=== PATIENT | female | born 1955 | race Caucasian/White ===

== ENCOUNTER 2019-10-14 22:59 | Emergency (ER) | payer SELFPAY ==
--- NOTE | 2019-10-15 00:22 | ER ---
Nurse's Notes [facility] Name: Dana Suarez Age: 64 yrs Sex: Female : 1955 Arrival Date: 10/14/2019 Time: 23:03 Bed 8 Private MD: Diagnosis: Acute bronchitis Presentation: 10/14 23:15 Presenting complaint: Patient states: Reports cough, sore throat and headache since ea yesterday. Reports clear nasal discharge and feels congested. Transition of care: patient was not received from another setting of care. Onset of symptoms was October 14, 2019. Risk Assessment: Do you want to hurt yourself or someone else? Patient reports no desire to harm self or others. Initial Sepsis Screen: Does the patient meet any 2 criteria? No. Patient's initial sepsis screen is negative. Does the patient have a suspected source of infection? No. Patient's initial sepsis screen is negative. Care prior to arrival: None. 23:15 Method Of Arrival: Ambulatory ea 23:15 Acuity: KRISTAL 4 ea Triage Assessment: 23:20 General: Appears uncomfortable, Behavior is appropriate for age. Pain: Complains of ea pain in sore throat. EENT: Reports nasal congestion pain in sore throat. Historical: - Allergies: 23:19 Aspirin; ea 23:19 Sulfa (Sulfonamide Antibiotics); ea - PSHx: 23:19 neck sx; ea - Immunization history:: Adult Immunizations up to date. - Social history:: Smoking status: Patient denies any tobacco usage or history of. - Ebola Screening: : No symptoms or risks identified at this time. Screenin:19 Abuse screen: Denies threats or abuse. Nutritional screening: No deficits noted. ea Tuberculosis screening: No symptoms or risk factors identified. Fall Risk None identified. Assessment: 23:20 General: Appears uncomfortable. Neuro: Level of Consciousness is awake, alert, obeys ea commands, Oriented to person, place, time, situation. Cardiovascular: Patient's skin is warm and dry. Respiratory: Airway is patent Respiratory effort is even, unlabored, Respiratory pattern is regular, symmetrical, Breath sounds are clear bilaterally. EENT: Throat is reddened. Derm: Skin is pink, warm \T\ dry. 10/15 00:00 Reassessment: Patient and/or family updated on plan of care and expected duration. Pain ea level reassessed. Patient is alert, oriented x 3, equal unlabored respirations, skin warm/dry/pink. 01:02 Reassessment: Patient and/or family updated on plan of care and expected duration. Pain ea level reassessed. Patient is alert, oriented x 3, equal unlabored respirations, skin warm/dry/pink. Discharge instruction given to patient verbalized the understanding of instruction. Pt left ED ambulatory accompanied by family. Pt tolerating well. Vital Signs: 10/14 23:18 BP 147 / 89; Pulse 92; Resp 19; Temp 98; Pulse Ox 98% on R/A; Weight 62.6 kg; Height 4 ea ft. 11 in. (149.86 cm); 10/15 01:02 BP 138 / 80; Pulse 88; Resp 18; Temp 98.2; Pulse Ox 100% on R/A; ea 10/14 23:18 Body Mass Index 27.87 (62.60 kg, 149.86 cm) ea ED Course: 10/14 23:03 Patient arrived in ED. cf2 23:15 Sonia Ayoub, RN is Primary Nurse. ea 23:18 Triage completed. ea 23:19 Patient has correct armband on for positive identification. Bed in low position. Call ea light in reach. 23:19 Arm band placed on right wrist. Patient placed in an exam room, on a stretcher, on ea pulse oximetry. 23:24 Daisy Avalos FNP-C is PHCP. snw 23:24 Ramez Leyva MD is Attending Physician. snw 10/15 01:03 No provider procedures requiring assistance completed. Patient did not have IV access ea during this emergency room visit. Administered Medications: 00:28 Drug: Tussionex Pennkinetic ER 5 ml Route: PO; ea 01:00 Follow up: Response: No adverse reaction ea 00:28 Drug: Zithromax 500 mg Route: PO; ea 01: Follow up: Response: No adverse reaction ea 00:28 Drug: predniSONE 40 mg Route: PO; ea 01: Follow up: Response: No adverse reaction ea 00:28 Drug: Pepcid 20 mg Route: PO; ea 01: Follow up: Response: No adverse reaction ea Outcome: Discharge ordered by MD. snw 01:03 Discharged to home ambulatory, with family. murray 01:03 Condition: stable 01:03 Discharge instructions given to patient, Instructed on discharge instructions, follow up and referral plans. medication usage, Demonstrated understanding of instructions, follow-up care, medications, Prescriptions given X 4. 01:04 Patient left the ED. murray Signatures: Daisy Avalos, CAM MAKER-C CAM MAKER-Csnw Sonia Ayoub, RN RN Mirella Braxton 2
--- NOTE | 2019-10-15 00:23 | EDPHYS ---
Physician Documentation [facility] Name: Dana Suarez Age: 64 yrs Sex: Female : 1955 Arrival Date: 10/14/2019 Time: 23:03 Bed 8 Private MD: ED Physician Ramez Leyva HPI: 10/15 00:25 This 64 yrs old Female presents to ER via Ambulatory with complaints of snw Cough, Sore Throat. 00:25 The patient or guardian reports cough, described as moderate. Onset: The snw symptoms/episode began/occurred suddenly, 2 day(s) ago, and became persistent. Severity of symptoms: At their worst the symptoms were moderate. Associated signs and symptoms: Pertinent positives: sore throat. It is unknown whether or not the patient has had similar symptoms in the past. The patient has not recently seen a physician, and does not have an established primary care provider. Historical: - Allergies: 10/14 23:19 Aspirin; ea 23:19 Sulfa (Sulfonamide Antibiotics); ea - PSHx: 23:19 neck sx; ea - Immunization history:: Adult Immunizations up to date. - Social history:: Smoking status: Patient denies any tobacco usage or history of. - Ebola Screening: : No symptoms or risks identified at this time. ROS: 10/15 00:24 Eyes: Negative for injury, pain, redness, and discharge. snw ENT: Negative for injury, pain, and discharge, Cardiovascular: Negative for chest pain, palpitations, and edema. Abdomen/GI: Negative for abdominal pain, nausea, vomiting, diarrhea, and constipation, Back: Negative for injury and pain, : Negative for injury, bleeding, discharge, and swelling, MS/Extremity: Negative for injury and deformity, Skin: Negative for injury, rash, and discoloration, Neuro: Negative for headache, weakness, numbness, tingling, and seizure. Constitutional: Positive for body aches, malaise. ENT: Positive for sore throat. Respiratory: Positive for cough, with no reported sputum. Exam: 00:24 Constitutional: This is a well developed, well nourished patient who is awake, alert, snw and in no acute distress. Head/Face: Normocephalic, atraumatic. Eyes: Pupils equal round and reactive to light, extra-ocular motions intact. Lids and lashes normal. Conjunctiva and sclera are non-icteric and not injected. Cornea within normal limits. Periorbital areas with no swelling, redness, or edema. Neck: Trachea midline, no thyromegaly or masses palpated, and no cervical lymphadenopathy. Supple, full range of motion without nuchal rigidity, or vertebral point tenderness. No Meningismus. Chest/axilla: Normal chest wall appearance and motion. Nontender with no deformity. No lesions are appreciated. Cardiovascular: Regular rate and rhythm with a normal S1 and S2. No gallops, murmurs, or rubs. Normal PMI, no JVD. No pulse deficits. Abdomen/GI: Soft, non-tender, with normal bowel sounds. No distension or tympany. No guarding or rebound. No evidence of tenderness throughout. Back: No spinal tenderness. No costovertebral tenderness. Full range of motion. Skin: Warm, dry with normal turgor. Normal color with no rashes, no lesions, and no evidence of cellulitis. MS/ Extremity: Pulses equal, no cyanosis. Neurovascular intact. Full, normal range of motion. Neuro: Awake and alert, GCS 15, oriented to person, place, time, and situation. Cranial nerves II-XII grossly intact. Motor strength 5/5 in all extremities. Sensory grossly intact. Cerebellar exam normal. Normal gait. Psych: Awake, alert, with orientation to person, place and time. Behavior, mood, and affect are within normal limits. 00:24 ENT: External ear(s): are unremarkable, Ear canal(s): are normal, TM's: are normal, Nose: is normal, Mouth: is normal, Posterior pharynx: erythema, that is moderate, Voice: is normal. 00:24 Respiratory: the patient does not display signs of respiratory distress, Respirations: shallow respirations, that is mild, Breath sounds: are clear throughout, bronchitic cough. Vital Signs: 10/14 23:18 BP 147 / 89; Pulse 92; Resp 19; Temp 98; Pulse Ox 98% on R/A; Weight 62.6 kg; Height 4 ea ft. 11 in. (149.86 cm); 10/15 01:02 BP 138 / 80; Pulse 88; Resp 18; Temp 98.2; Pulse Ox 100% on R/A; ea 10/14 23:18 Body Mass Index 27.87 (62.60 kg, 149.86 cm) ea MDM: 10/14 23:24 Patient medically screened. snw 10/15 00:23 Data reviewed: vital signs, nurses notes. Data interpreted: Pulse oximetry: on room air snw is 98 %. Interpretation: normal. Counseling: I had a detailed discussion with the patient and/or guardian regarding: the historical points, exam findings, and any diagnostic results supporting the discharge/admit diagnosis, the presence of at least one elevated blood pressure reading (>120/80) during this emergency department visit, lab results, the need for outpatient follow up, for definitive care, to return to the emergency department if symptoms worsen or persist or if there are any questions or concerns that arise at home. Special discussion: I have referred the patient to see his PCP for further evaluation of high blood pressure. Based on the history and exam findings, there is no indication for further emergent testing or inpatient evaluation. I discussed with the patient/guardian the need to see the primary care provider for further evaluation of the symptoms. 10/14 23:15 Order name: Strep; Complete Time: 23:58 ea 10/14 23:15 Order name: Flu; Complete Time: 23:58 ea 10/14 23:56 Order name: Throat Culture EDMS Administered Medications: 00:28 Drug: Tussionex Pennkinetic ER 5 ml Route: PO; ea 01:00 Follow up: Response: No adverse reaction ea 00:28 Drug: Zithromax 500 mg Route: PO; ea 01:00 Follow up: Response: No adverse reaction ea 00: Drug: predniSONE 40 mg Route: PO; ea 01:00 Follow up: Response: No adverse reaction ea 00: Drug: Pepcid 20 mg Route: PO; ea 01:00 Follow up: Response: No adverse reaction ea Disposition: 05:47 Co-signature as Attending Physician, Ramez Leyva MD I agree with the assessment and [facility] plan of care. Disposition: 10/15/19 00:22 Discharged to Home. Impression: Acute bronchitis. - Condition is Stable. - Discharge Instructions: Acute Bronchitis, Adult, Fever, Adult, Cough, Adult, Rehydration, Adult. - Prescriptions for Prednisone 20 mg Oral Tablet - take 2 tablet by ORAL route once daily for 5 days; 10 tablet. Albuterol Sulfate 90 mcg/actuation - inhale 1-2 puff by INHALATION route every 4-6 hours; 1 Inhaler. Pepcid 20 mg Oral Tablet - take 1 tablet by ORAL route once daily for 10 days; 10 tablet. Zithromax 500 mg Oral Tablet - take 1 tablet by ORAL route once daily for 5 days; 5 tablet. - Work release form, Medication Reconciliation Form, Thank You Letter, Antibiotic Education, Prescription Opioid Use form. - Follow up: Emergency Department; When: As needed; Reason: Worsening of condition. Follow up: Private Physician; When: 2 - 3 days; Reason: Recheck today's complaints, Continuance of care, Re-evaluation by your physician. Signatures: Dispatcher [employer] EDDaisy Spencer FNP-C FNP-Sonia Carreno, RN RN Ramez Valero MD MD tw4 Corrections: (The following items were deleted from the chart) 01:04 00:22 10/15/2019 00:22 Discharged to Home. Impression: Acute bronchitis. Condition is ea Stable. Forms are Medication Reconciliation Form, Thank You Letter, Antibiotic Education, Prescription Opioid Use. Follow up: Emergency Department; When: As needed; Reason: Worsening of condition. Follow up: Private Physician; When: 2 - 3 days; Reason: Recheck today's complaints, Continuance of care, Re-evaluation by your physician. snw
[2019-10-15] MEDS ORDERED: AZITHROMYCIN 250 MG TAB ONE (00:27)
[2019-10-15] MEDS ORDERED: HYDROCODONE/CHLORPHEN 5 ML/OSYR ONE (00:28)
[2019-10-15] MEDS ORDERED: predniSONE 20 MG TAB ONE (00:28)
[2019-10-15] MEDS ORDERED: FAMOTIDINE 20 MG TAB ONE (00:28)
[2019-10-15 16:20] VITALS: BP 138/80; TEMP 98.2; O2SAT 100
== END 2019-10-15 01:04 | disposition home or self-care (01) ==
LOC: ER 22:59
DX: J20.9 Acute bronchitis, unspecified (principal); Z88.2 Allergy status to sulfonamides; Z88.6 Allergy status to analgesic agent
CPT/HCPCS: 87070; 87081; 87804; 99283; J7512